=== PATIENT | male | born 1980 | race Hispanic/Latino ===

== ENCOUNTER 2025-02-06 18:42 | Emergency (ER) | payer OTHER, SELFPAY ==
[2025-02-06 19:16] VITALS: BP 109/73
[2025-02-06 23:24] VITALS: BP 124/84
[2025-02-06 23:26] VITALS: BP 124/84; BMI 42.2
--- NOTE | 2025-02-07 00:17 | ED.GENMED ---
History of Present Illness
General
Chief Complaint: Skin Problem
Source: patient
Exam Limitations: none
Time Seen by Provider: 02/07/25 00:03
Nursing documentation reviewed up to this point in time: agreed with
History of Present Illness
History of Present Illness:
44-year-old male with past medical history of diabetes presents to the ER for evaluation of redness and swelling in the left groin. Patient reports he noticed it 2 days ago and has been increasing since then. He reports the area is warm, tender to
the touch and red. He feels a small bump there. He denies any other complaints�no fever, chills, nausea, vomiting, urinary symptoms, penile discharge. He is not sexually active. No trauma to the area. He denies any other complaints.
Past History
Past History
ED Past Medical History: NIDDM and Other (Fatty liver, lung nodule)
ED Past Surgical History: None
Review of Systems
Review of Systems
All Other Systems: ROS reviewed and negative except as documented in HPI and ROS
Constitutional: Denies fever
Respiratory: Denies trouble breathing
Cardiac: Denies chest pain
ABD/GI: Denies abdominal pain
Musculoskeletal: Denies neck pain or back pain
Skin: Reports other (Red, warm, tender left groin)
Phy Exam
Physical Exam
Physical Exam:
General: Resting very comfortably not in any distress
Head: Normocephalic, atraumatic
Eyes: Conjunctiva normal
Throat: Airway intact, handling secretions
Neck: Trachea midline
Lungs: Breathing comfortably not in distress
Heart: Regular rate
Abd: Soft, non distended, nontender
: No scrotal swelling or skin changes
Neuro: No gross deficits
Skin: Acanthosis nigricans noted; on left leg he has no rash, no wounds, cuts or scrapes; on examination of the area of concern in the left groin/pelvic region: he has approximately 5 cm diameter area of warmth and erythema, tenderness with no
crepitus; there is a very small central area of induration which is tender to the touch
Extremities: Warm and well-perfused, strong palpable femoral pulse and distal DP pulse in the left lower extremity, no edema in the left lower extremity
Scores
Heart Failure Risk
Heart Failure Risk Score: Not Applicable
Heart Score for Chest Pain Patients
STEMI patient?: Not applicable
Withdrawal Assessment of Alcohol
Withdrawal Assessment Completed?: Not applicable
Sepsis
Sepsis Screening
Sepsis Assessment: Sepsis Ruled Out
Sepsis Screen
Sepsis Screen: Sepsis Ruled Out
Date: 02/07/25
Time: 01:21
Course
Orders/Labs/Results
Orders:
Orders
02/07/25 00:16
US Groin (Imaging Only) LT Urgent
Comment:
Reason For Exam: redness and swelling left groin
02/07/25 00:20
Basic Metabolic Panel Urgent
Complete Blood Count/With Diff Urgent
02/07/25 01:16
Amoxicillin 875 mg/Clav 125 mg [Augmentin 875 mg/125 mg] 1 tablet PO NOW STA
Doxycycline [Vibramycin] 100 mg PO NOW STA
Abnormal Lab Results
02/07/25
00:20
RBC 4.45 L 10^6/uL
(4.70-6.10)
MCH 33.3 H pg
(27.0-31.0)
MPV 11.4 H fL
(7.4-10.4)
Absolute Monos (auto) 0.9 H 10^3/uL
(0.1-0.6)
Lymphocytes % 20.4 L %
(20.5-51.1)
Monocytes % 10.0 H %
(1.7-9.3)
BUN 21 H mg/dl
(9-20)
Glucose 125 H mg/dl
(70-99)
02/07/25 00:20
02/07/25 00:20
Vital Signs
Initial and Last Documented VS:
Initial Vital Signs
Temp Pulse Resp BP Pulse Ox
37.2 C 89 20 109/73 98
02/06/25 19:16 02/06/25 19:16 02/06/25 19:16 02/06/25 19:16 02/06/25 19:16
Last Documented Vital Signs
Temp Pulse Resp BP Pulse Ox
37.2 C 85 16 124/84 96
02/06/25 19:16 02/06/25 23:26 02/06/25 23:26 02/06/25 23:26 02/06/25 23:26
MDM/Problems Addressed
Differential Diagnosis Includes:
Lymphadenitis, cellulitis, abscess; less likely pseudoaneurysm as area is well removed from his palpable femoral pulse and is not pulsatile
MDM/Problems Addressed:
44-year-old male presents for evaluation of redness, pain, swelling left groin. No trauma. Vitals and exam as above. Suspect likely cellulitis�there is a small area of central induration/tenderness that could be simply edematous tissue, enlarged
lymph node or could be small collection/abscess. Will send for an ultrasound to better evaluate. Check basic labs.
Labs reviewed: CBC shows no leukocytosis. CMP shows no hyponatremia, no acidosis or other acute abnormalities. His glucose is reasonable at 125. His vital signs have been stable throughout ED observation and he is non toxic, very well appearing.
Ultrasound shows no discrete fluid collection, localized area of subcutaneous edema concerning for cellulitis. Area is very localized does not extend to the perineum or the scrotum. I think he can reasonably be treated with antibiotics as an
outpatient to start although I did explain to the patient very strict return precautions including if erythema is extending or if he starts to have systemic signs or symptoms. He indicated understanding. Provided first dose of antibiotics here.
All questions answered.
Chronic conditions affecting care:
Diabetes
*Radiology
Radiology exam reviewed: radiology read reviewed
*Pulse Oximetry
Patient hypoxic: no
*Critical Care Note
Total Time (30-74mins, 75-104mins- exclusive of procedures): Not Applicable
Data Reviewed
Source: patient and records
ED Attending Note
-
Portions of this chart may have been created with voice recognition software.� Occasional wrong word or��sound alike� substitutions may have occurred due to the inherent limitations of voice recognition software.
Discharge Plan
Departure
Patient Disposition: Home (Routine Discharge)
Date of Disposition: 02/07/25
Time of Disposition: 01:14
Patient with high blood pressure during this ER visit?: No
Discharge Problem:
Cellulitis
Instructions: Cellulitis (Skin Infection), Adult (DC)
Prescriptions:
New
amoxicillin-pot clavulanate 875-125 mg tablet
1 tab PO BID Qty: 14 0RF
doxycycline hyclate 100 mg capsule
100 mg PO BID Qty: 14 0RF
No Action
metformin 500 mg Tablet
500 mg PO BID@,17
oxycodone 5 mg tablet
5 - 10 mg PO Q4HPRN PRN (Reason: moderate to severe pain) Qty: 14 0RF
Referrals:
Armaan Knox MD [Family Provider] - Follow up in 5-7 days
Activity Restrictions/Additional Instructions:
Thank you for visiting the Emergency Department at [facility].
1. Please schedule a follow up appointment as directed. Call first thing tomorrow morning to make an appointment.
2. If indicated, please take your medications as instructed and indicated on discharge paperwork.
3. If any of your symptoms do not improve, or persist, or become more severe within 6-12 hours, please return to the emergency department for further care.
4. Please return to the emergency department if you develop a headache, neck pain/stiffness, fever greater than 100.4F, chest pain, shortness of breath, persistent nausea, vomiting, slurred speech, difficulty walking, numbness/tingling, weakness,
signs of infection or any other symptoms that are worrisome to you.
Please call [phone] if you have any questions.
Interventions
Interventions:
*Risk Screen - Suicide Last Done: 02/06/25 19:16
*General Assessment Last Done: 02/06/25 23:26
*Neglect/Abuse Screening Last Done: 02/06/25 19:16
*ED- Fall Risk Assessment Last Done: 02/06/25 23:26
*ED COVID-19 Vaccine History Last Done: 02/06/25 23:26
ED-Skin Assessment Last Done: 02/06/25 23:26
Discharge Date and Time
Print Language: BULGARIAN
[2025-02-07 00:34] LABS: % Basophils 0.4 % (0-2); % Eosinophils 3.3 % (0-6); % Immature Granulocytes 0.2 % (0-0.5); % Lymphocytes 20.4 % (20.5-51.1); % Neutrophils 65.7 % (42.2-75.2); Absolute Eosinophils 0.3 10^3/uL (0-0.7); Absolute Lymphocytes 1.9 10^3/uL (1.2-3.4); Absolute Monocytes 0.9 10^3/uL (0.1-0.6); Absolute Neutrophils 6.2 10^3/uL (1.4-6.5); Hematocrit 41.8 % (39.0-52.0); Hemoglobin 14.8 g/dL (13.0-18.0); Mean Corp Hgb Conc. 35.4 g/dL (33.0-37.0); Mean Corpuscular Hgb 33.3 pg (27.0-31.0); Mean Corpuscular Volume 93.9 fL (80.0-94.0); Mean Platelet Volume 11.4 fL (7.4-10.4); Nucleated Red Blood Cells % 0 % (-); Platelet Count 169 10^3/uL (130-400); Red Blood Cell Count 4.45 10^6/uL (4.70-6.10); Red Cell Dist. Width 12.7 % (11.5-14.5); White Blood Cell Count 9.4 10^3/uL (4.8-10.8)
[2025-02-07 01:05] LABS: Blood Urea Nitrogen 21 mg/dl (9-20); Carbon Dioxide 24 mmol/L (22-30); Chloride 103 mmol/L (98-107); Estimated Creatinine Clearance > 125 ml/min; Glucose 125 mg/dl (70-99); Potassium 3.8 mmol/L (3.5-5.1); Sodium 136 mmol/L (135-145); eGFR > 60.00
[2025-02-07] MEDS: VIBRAMYCIN 100 MG PO (01:47)
[2025-02-07] MEDS: AUGMENTIN 875 MG/125 MG 1 TABLET PO (01:47)
[2025-02-07 01:51] VITALS: BP 110/65
== END 2025-02-07 01:59 | disposition home or self-care (01) ==
LOC: EMR 18:42
PROVIDERS: EMERGENCY PHYSICIAN Emergency Medicine; FAMILY PHYSICIAN Family Medicine
DX: L03.314 Cellulitis of groin (principal); E11.9 Type 2 diabetes mellitus without complications
CPT/HCPCS: 99284; 76882; 80048; 85025

== ENCOUNTER 2025-10-12 23:06 | Emergency (ER) | payer OTHER, SELFPAY ==
[2025-10-12 23:31] VITALS: BP 146/96
--- NOTE | 2025-10-12 23:50 | ED.GENMED ---
History of Present Illness
General
Chief Complaint: Dental Problem
Source: patient
Exam Limitations: none
Time Seen by Provider: 10/12/25 23:39
Nursing documentation reviewed up to this point in time: agreed with
History of Present Illness
History of Present Illness:
45-year-old male presenting to the emergency department today with concerns of dental pain over the past couple days to the left maxillary premolar. He has a fractured tooth there over the past few months and has had difficulty following up with
dental. He claims that he claims that he will be able to follow-up in the next day or 2 with a dentist but is having too much pain tonight. Denies any trouble swallowing or breathing. Denies any fevers or systemic symptoms.
Past History
Past History
ED Past Medical History: NIDDM and Other (Fatty liver, lung nodule)
ED Past Surgical History: None
Review of Systems
Review of Systems
Allergies reviewed?: Yes
All Other Systems: ROS reviewed and negative except as documented in HPI and ROS
Phy Exam
Physical Exam
Physical Exam:
GENERAL: Alert , in no apparent distress
EYE: pupils equal and reactive
NECK: Supple, no significant adenopathy.
ENT: Fractured left-sided maxillary premolar, some vague redness surrounding the area without fluctuance or induration. No extension into the remainder of the soft tissue of the face or lip. No drainage. Normal posterior pharynx o/p clr, mmm.
CARDIAC: Regular rate and rhythm .
LUNGS: Clear breath sounds bilaterally, no acute respiratory distress, no wheezes/rales/rhonchi
ABDOMEN: Soft, without focal tenderness, no r/g, no cvat
NEUROLOGICAL: Alert and oriented, no focal neuro deficits
SKIN: Warm and dry, skin intact.
MUSCULOSKELETAL: No edema, well perfused.
PSYCH: Normal and appropriate interaction.
Course
Orders/Labs/Results
Orders:
Orders
10/12/25 23:43
Ketorolac [Toradol] 30 mg IM NOW STA
Penicillin V Potassium [Pen Vk] 500 mg PO NOW STA
Vital Signs
Initial and Last Documented VS:
Initial Vital Signs
Temp Pulse Resp BP Pulse Ox
97.7 F 74 16 146/96 97
10/12/25 23:31 10/12/25 23:31 10/12/25 23:31 10/12/25 23:31 10/12/25 23:31
Last Documented Vital Signs
Temp Pulse Resp BP Pulse Ox
97.7 F 74 16 146/96 97
10/12/25 23:31 10/12/25 23:31 10/12/25 23:31 10/12/25 23:31 10/12/25 23:31
MDM/Problems Addressed
MDM/Problems Addressed:
45-year-old male presenting to the emergency department with discomfort to his left maxillary region. Very small amount of redness surrounding a fractured tooth but no evidence of abscess without fluctuance or induration. No additional surrounding
swelling. He was started on antibiotic as prophylaxis until follow-up with dental in the next day or 2. Was also given medication to help with pain. Otherwise stable for outpatient management. Return precautions given.
*Pulse Oximetry
SaO2: 97
Oxygen Mode of Delivery: Room air
Patient hypoxic: no (97)
*Critical Care Note
Total Time (30-74mins, 75-104mins- exclusive of procedures): Not Applicable
ED Attending Note
-
Portions of this chart may have been created with voice recognition software.� Occasional wrong word or��sound alike� substitutions may have occurred due to the inherent limitations of voice recognition software.
Discharge Plan
Departure
Patient Disposition: Home (Routine Discharge)
Date of Disposition: 10/13/25
Time of Disposition: 00:01
Patient with high blood pressure during this ER visit?: No
Condition: Good
Covid-19: Not Applicable
Discharge Problem:
Fracture of tooth
Instructions: Fractured Tooth (DC), Dental Pain (DC)
Prescriptions:
New
penicillin V potassium 500 mg tablet
500 mg PO TID 7 Days Qty: 21 0RF
ibuprofen 600 mg tablet
600 mg PO Q8H PRN (Reason: Pain) Qty: 14 0RF
No Action
metformin 500 mg Tablet
500 mg PO BID@08,17
oxycodone 5 mg tablet
5 - 10 mg PO Q4HPRN PRN (Reason: moderate to severe pain) Qty: 14 0RF
amoxicillin-pot clavulanate 875-125 mg tablet
1 tab PO BID Qty: 14 0RF
doxycycline hyclate 100 mg capsule
100 mg PO BID Qty: 14 0RF
Activity Restrictions/Additional Instructions:
You came to the emergency department today with concerns of dental pain. You were written for antibiotic as well as pain medication. Please take this as prescribed. Return for any worsening, new or concerning symptoms.
Interventions
Interventions:
*Risk Screen - Suicide Last Done: 10/12/25 23:31
*General Assessment Last Done: 10/12/25 23:31
*Neglect/Abuse Screening Last Done: 10/12/25 23:31
Discharge Date and Time
Print Language: ITALIAN
[2025-10-13] MEDS: PEN VK 500 MG PO (00:05)
[2025-10-13] MEDS: TORADOL 30 MG IM (00:05)
== END 2025-10-13 00:12 | disposition home or self-care (01) ==
LOC: EMR 23:06
PROVIDERS: EMERGENCY PHYSICIAN Student in an Organized Health Care Education/Training Program; FAMILY PHYSICIAN Physician Assistant Medical
DX: S02.5XXA Fracture of tooth (traumatic), initial encounter for closed fracture (principal); X58.XXXA Exposure to other specified factors, initial encounter; E11.9 Type 2 diabetes mellitus without complications; K76.0 Fatty (change of) liver, not elsewhere classified; Z79.84 Long term (current) use of oral hypoglycemic drugs
CPT/HCPCS: 99284; 96372